=== PATIENT | female | born 1975 | race Caucasian/White ===

== ENCOUNTER 2023-10-06 07:30 | Observation (INO) ==
[2023-10-06] MEDS: NOZIN NASAL SANITIZER TP ONE (10:17)
[2023-10-06] MEDS: NS 1,000 ML IV 1,000 ML ONE ×2 (10:18→14:22)
[2023-10-06 11:31] VITALS: BMI 50.1
[2023-10-06] MEDS ORDERED: BENADRYL INJ 50 MG VIAL IVP PRN (12:54)
[2023-10-06] MEDS ORDERED: REGLAN INJ 10 MG VIAL IVP PRN (12:54)
[2023-10-06] MEDS ORDERED: ZOFRAN INJ 4 MG VIAL IVP PRN (12:54)
[2023-10-06] MEDS ORDERED: BARHEMSYS INJ IVP PRN (12:54)
[2023-10-06] MEDS: DILAUDID INJ ONE ×2 (12:57→15:58)
[2023-10-06] MEDS: DUONEB 0.5 MG/3 MG (3 mL) NEB ONE (13:40)
[2023-10-06] MEDS: OFIRMEV IV 1000 MG VIAL 1,000 MG/100 ML VIAL IV ONE (14:46)
[2023-10-06] MEDS: NS 100 ML IV 100 ML ONE (14:46)
[2023-10-06] MEDS ORDERED: SUPRANE ONE (14:46)
[2023-10-06] MEDS: PEPCID 20 MG VIAL ONE (14:46)
[2023-10-06] MEDS: ZOFRAN INJ 4 MG VIAL ONE ×2 (14:46→16:58)
[2023-10-06] MEDS: VERSED ONE (14:46)
[2023-10-06] MEDS ORDERED: KETAMINE HCL ONE (14:46)
[2023-10-06] MEDS: TORADOL 30 MG VIAL ONE (14:46)
[2023-10-06] MEDS: REGLAN INJ 10 MG VIAL ONE (14:46)
[2023-10-06] MEDS: DIPRIVAN VIAL 20 ML ONE (14:46)
[2023-10-06] MEDS: FENTANYL VIAL INJ 100 mcg ONE ×2 (14:46→15:24)
[2023-10-06] MEDS: ANCEF VIAL 1 GRAM ONE (14:46)
[2023-10-06] MEDS: ZEMURON 100 MG VIAL ONE (14:46)
[2023-10-06] MEDS: BETADINE SOLN ONE (14:46)
[2023-10-06] MEDS: BRIDION ONE (14:46)
[2023-10-06] MEDS: EPHEDRINE SULFATE INJ ONE (15:07)
[2023-10-06] MEDS: MARCAINE 0.25% INJ ONE (15:15)
[2023-10-06] MEDS: NEO-SYNEPHRINE INJ ONE (15:19)
[2023-10-06] MEDS ORDERED: TYLENOL 325 MG TAB PO PRN (17:03)
[2023-10-06] MEDS: DILAUDID INJ IVP PRN ×2 (17:13→20:33)
[2023-10-06] MEDS: NovoLIN R (or HumuLIN R) SUBCUT ONE (17:20)
[2023-10-06] MEDS: NovoLIN R (or HumuLIN R) ONE (18:28)
[2023-10-06] MEDS: NovoLIN R (or HumuLIN R) SUBCUT PRN (20:36)
[2023-10-06] MEDS: SNACK - Diabetic Appropriate PO SCH (20:48)
[2023-10-06] MEDS: COLACE CAP 100 MG PO SCH (20:48)
[2023-10-06] MEDS: NOZIN NASAL SANITIZER TP SCH (20:49)
[2023-10-06] MEDS: ANCEF VIAL 1 GRAM IVP SCH (21:25)
[2023-10-07 01:56] VITALS: RESP 18
[2023-10-07] MEDS: PERCOCET TAB 5/325 MG PO PRN (01:56)
[2023-10-07 05:27] LABS: BLOOD UREA NITROGEN 21 mg/dL (7-18); CALCIUM 8.2 mg/dL (8.5-10.1); CHLORIDE 102 mmol/L (98-107); COR NA(FOR HYPERGLY) 140 mmol/L (136-145); CREATININE 0.95 mg/dL (0.55-1.02); GLUCOSE 246 mg/dL (65-99); POTASSIUM 4.4 mmol/L (3.5-5.1); SODIUM 136 mmol/L (136-145); eGFR NON BLACK RACES > 60 (>60)
[2023-10-07 08:04] LABS: BASOPHILS # (AUTO) 0.3 X10^3/uL (0.0-0.1); BASOPHILS % (AUTO) 3.2 % (0.2-1.0); EOSINOPHILS # (AUTO) 0.5 x10^3/uL (0.0-0.2); EOSINOPHILS % (AUTO) 5.1 % (0.9-2.9); HEMATOCRIT 40.9 % (36.0-47.0); HEMOGLOBIN 13.3 g/dL (12.0-16.0); LYMPHOCYTES # (AUTO) 1.1 X10^3/uL (1.3-2.9); LYMPHOCYTES % (AUTO) 12.1 % (21.0-51.0); MEAN CORPUSCULAR HEMOGLOBIN 29.7 pg (27.0-34.0); MEAN CORPUSCULAR HGB CONC 32.6 g/dL (33.0-35.0); MEAN PLATELET VOLUME 8.3 fL (7.4-11.0); MONOCYTES # (AUTO) 0.7 x10^3/uL (0.3-0.8); NEUTROPHILS # (AUTO) 6.5 x10^3/uL (2.2-4.8); NEUTROPHILS % (AUTO) 71.6 % (42.0-75.0); PLATELET COUNT 221 X10^3/uL (150.0-450.0); RED BLOOD COUNT 4.49 X10^6/uL (3.5-5.4); RED CELL DISTRIBUTION WIDTH 14.8 % (11.6-16.5); WHITE BLOOD COUNT 9.1 X10^3/uL (3.6-10.0)
--- NOTE | 2023-10-07 08:16 | NOTE.SOAP ---
Soap Note Note for Day of Date of Exam: 10/07/23 Subjective Data Subjective Data: Patient is POD1 s/p Hindfoot fusion with removal of external fixator. She is doing well but in pain which is normal in the post op course. No constitutional symptoms. Objective Data Objective Data: Incisions are well coapted, minimal edema and erythema with the post op course. No Drainage. There was sanguinous drainage upon removal of dressings but no active bleeding. Neurovascular status intact Assessment Assessment: s/p Hinfoot fusion with removal of external fixator - Club foot, right lower extremity Plan Plan: Patient was seen bedside this am; diagnosis and treatment were discussed i n detail. Dressing change performed with xeroform DSD and a posterior splint. SHe is to be nonweight bearing to the RLE with assistive device. She states she is ready to go home; ok from our standpoint but PT eval prior is preferrable. Discharge with post op instructiions, pain meds, DVT ppx, zofran and keflex (sent to pharmacy. Patient is to follow up with Dr. Hernandez at appointment time or sooner if any problems arise
[2023-10-07] MEDS: LOVENOX INJ 40 MG SYR SC SCH (08:23)
[2023-10-07 09:20] VITALS: BP 121/72; PULSE 99; TEMP 98.5; O2SAT 92
[2023-10-07] MEDS: ZOFRAN INJ 4 MG VIAL IVP PRN (09:34)
[2023-10-07] MEDS ORDERED: SNACK - Diabetic Appropriate PO SCH (20:00)
== END 2023-10-07 11:05 | disposition home or self-care (01) ==
LOC: MED/SURG
PROVIDERS: ADMIT Obstetrics & Gynecology Obstetrics; ATTEND Obstetrics & Gynecology Obstetrics

== ENCOUNTER 2024-12-06 09:45 | Observation (INO) ==
[2024-12-06] MEDS ORDERED: KETAMINE HCL ONE (11:31)
[2024-12-06] MEDS ORDERED: XYLOCAINE 2 % (PLAIN) ONE (11:31)
[2024-12-06] MEDS ORDERED: ULTANE GAS IN ONE (11:31)
[2024-12-06] MEDS: BETADINE SOLN ONE (12:00)
[2024-12-06] MEDS: OFIRMEV IV 1000 MG VIAL 1,000 MG/100 ML VIAL IV ONE (12:07)
[2024-12-06] MEDS: BRIDION ONE (12:07)
[2024-12-06] MEDS: DIPRIVAN VIAL 20 ML ONE (12:07)
[2024-12-06] MEDS: TORADOL 30 MG VIAL ONE (12:09)
[2024-12-06] MEDS: REGLAN INJ 10 MG VIAL ONE (12:09)
[2024-12-06] MEDS: XYLOCAINE 2 % (PLAIN) ONE (12:09)
[2024-12-06] MEDS: ZOFRAN INJ 4 MG VIAL ONE ×2 (12:09→16:09)
[2024-12-06] MEDS: PRECEDEX INJ VIAL ONE (12:09)
[2024-12-06] MEDS: ZEMURON 100 MG VIAL ONE (12:09)
[2024-12-06] MEDS: VERSED ONE (12:12)
[2024-12-06] MEDS: FENTANYL VIAL INJ 100 mcg ONE (12:15)
[2024-12-06] MEDS: NS 1,000 ML IV 1,000 ML ONE ×2 (12:18→19:30)
[2024-12-06] MEDS: NovoLIN R (or HumuLIN R) SUBCUT PRN (12:21)
[2024-12-06] MEDS: PEPCID 20 MG VIAL ONE (12:22)
[2024-12-06 12:23] VITALS: BMI 50.1
[2024-12-06] MEDS: NovoLIN R (or HumuLIN R) ONE (12:24)
[2024-12-06] MEDS: NS 1,000 ML IV 1,200 ML IV PRN (13:30)
[2024-12-06] MEDS: ZOFRAN INJ 4 MG VIAL IVP PRN ×2 (13:32→16:11)
[2024-12-06] MEDS: REGLAN INJ 10 MG VIAL IVP PRN (13:32)
[2024-12-06] MEDS: PEPCID 20 MG VIAL IVP PRN (13:32)
[2024-12-06] MEDS ORDERED: XYLOCAINE 2 % (PLAIN) PRN (13:40)
[2024-12-06] MEDS: DIPRIVAN VIAL 200 ML IVP PRN (13:40)
[2024-12-06] MEDS: KETAMINE HCL IV PRN (13:40)
[2024-12-06] MEDS: FENTANYL VIAL INJ 100 mcg IVP PRN (13:40)
[2024-12-06] MEDS: EPHEDRINE SULFATE INJ IVP PRN (13:50)
[2024-12-06] MEDS: NEO-SYNEPHRINE INJ ONE (13:59)
[2024-12-06] MEDS: EPHEDRINE SULFATE INJ ONE (13:59)
[2024-12-06] MEDS: MARCAINE 0.25% INJ ONE (14:02)
[2024-12-06] MEDS: ROBINUL ONE (14:10)
[2024-12-06] MEDS: ROBINUL IVP PRN (14:11)
[2024-12-06] MEDS: ANCEF VIAL 1 GRAM IV PRN (14:15)
[2024-12-06] MEDS: ANCEF VIAL 1 GRAM ONE (14:15)
[2024-12-06] MEDS ORDERED: BENADRYL INJ 50 MG VIAL IVP PRN (14:16)
[2024-12-06] MEDS ORDERED: BARHEMSYS INJ IVP PRN (14:16)
[2024-12-06] MEDS ORDERED: DILAUDID INJ IVP PRN ×2 (14:16→15:54)
[2024-12-06] MEDS: OFIRMEV IV 1000 MG VIAL 1,000 MG/100 ML VIAL IV PRN (14:33)
[2024-12-06] MEDS: DILAUDID INJ ONE (14:35)
[2024-12-06] MEDS: VANCOMYCIN HCL ONE (14:42)
[2024-12-06] MEDS: TORADOL 30 MG VIAL IVP PRN (14:43)
[2024-12-06] MEDS: TOBRAMYCIN SULFATE ONE (14:43)
[2024-12-06] MEDS: ZEMURON 100 MG VIAL IVP PRN (14:49)
[2024-12-06] MEDS: PRECEDEX INJ VIAL IVP PRN (15:21)
[2024-12-06] MEDS: HYDROGEN PEROXIDE 3% ONE (15:25)
[2024-12-06] MEDS: NEO-SYNEPHRINE INJ IVP PRN (15:26)
[2024-12-06] MEDS: BRIDION IVP PRN (15:29)
[2024-12-06] MEDS: DILAUDID INJ IVP PRN (15:39)
[2024-12-06] MEDS ORDERED: TYLENOL 325 MG TAB PO PRN (15:51)
[2024-12-06] MEDS ORDERED: ZOFRAN INJ 4 MG VIAL IVP PRN (15:51)
[2024-12-06] MEDS: BARHEMSYS INJ ONE (15:57)
[2024-12-06] MEDS: PHENERGAN INJ 25 MG IM ONE (16:34)
[2024-12-06] MEDS: PERCOCET TAB 5/325 MG PO PRN (22:08)
[2024-12-06] MEDS: COLACE CAP 100 MG PO SCH (22:09)
[2024-12-06] MEDS: NS 250 ML IV 250 ML IV ONE (22:11)
[2024-12-06] MEDS: ANCEF VIAL 1 GRAM 2 G in NS 100 ML IV 100 ML IV SCH (22:11)
[2024-12-06] MEDS: SNACK - Diabetic Appropriate PO SCH (22:20)
[2024-12-07 04:34] VITALS: O2SAT 95
[2024-12-07 06:02] LABS: COR NA(FOR HYPERGLY) 142 mmol/L (136-145); CREATININE 0.96 mg/dL (0.55-1.02); eGFR NON BLACK RACES > 60 (>60)
--- NOTE | 2024-12-07 08:04 | NOTE.SOAP ---
Soap Note Note for Day of Date of Exam: 12/07/24 Subjective Data Subjective Data: Patient is seen resting comfortably in bed and eating. She denies any calf pain, no shortness of breath and no fevers. Patient states she did have some pain to the anterior tibia consistent with her surgical hardware removal site. The pain medication did help her. Objective Data Objective Data: Dressing to the LLE is clean dry and intact. Foot is currently in a splint and in rectus position, with digits exposed. All digits maintain a CFT of < 3sec with ROM intact. No calf tenderness noted above the level of the splint. 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 Hernandez, and is to keep her dressing clean, dry and intact at this time
[2024-12-07] MEDS: LOVENOX INJ 40 MG SYR SC SCH (08:57)
[2024-12-07] MEDS: COMPAZINE INJ IVP ONE (10:23)
[2024-12-07 11:33] VITALS: RESP 18
[2024-12-07 14:05] VITALS: BP 140/82; PULSE 95; TEMP 97.8
== END 2024-12-07 12:50 | disposition home or self-care (01) ==
LOC: OBS → MED/SURG 16:15
PROVIDERS: ADMIT Obstetrics & Gynecology Obstetrics; ATTEND Obstetrics & Gynecology Obstetrics
PROC: HARDREM (ICD-10-PCS; 2024-12-06 12:55)
DX: E11.65 Type 2 diabetes mellitus with hyperglycemia; M96.0 Pseudarthrosis after fusion or arthrodesis; M21.172 Varus deformity, not elsewhere classified, left ankle; Z79.4 Long term (current) use of insulin; E11.42 Type 2 diabetes mellitus with diabetic polyneuropathy; T84.84XA Pain due to internal orthopedic prosthetic devices, implants and grafts, initial encounter; Z16.11 Resistance to penicillins; Z16.29 Resistance to other single specified antibiotic; B95.7 Other staphylococcus as the cause of diseases classified elsewhere; Z16.19 Resistance to other specified beta lactam antibiotics; Z16.12 Extended spectrum beta lactamase (ESBL) resistance

== ENCOUNTER 2025-01-24 11:22 | Observation (INO) ==
[~2025-01-24 11:22] MED LIST: KETAMINE HCL ONE; ULTANE GAS IN ONE; XYLOCAINE 2 % (PLAIN) ONE
[2025-01-24] MEDS: ANCEF VIAL 1 GRAM ONE (11:26)
[2025-01-24 12:03] VITALS: BMI 50.1
[2025-01-24 12:11] VITALS: RESP 18
[2025-01-24] MEDS ORDERED: BENADRYL INJ 50 MG VIAL IVP PRN (12:20)
[2025-01-24] MEDS ORDERED: BARHEMSYS INJ IVP PRN (12:20)
[2025-01-24] MEDS ORDERED: DILAUDID INJ IVP PRN (12:20)
[2025-01-24] MEDS ORDERED: ZOFRAN INJ 4 MG VIAL IVP PRN (12:20)
[2025-01-24] MEDS: FENTANYL VIAL INJ 100 mcg ONE (12:27)
[2025-01-24] MEDS: VERSED ONE (12:27)
[2025-01-24] MEDS: ZEMURON 100 MG VIAL ONE (12:29)
[2025-01-24] MEDS: BRIDION ONE (12:29)
[2025-01-24] MEDS: DIPRIVAN VIAL 20 ML ONE (12:29)
[2025-01-24] MEDS: D5 1/2 NS 1,000 ML 1,000 ML IV ONE (12:29)
[2025-01-24] MEDS: OFIRMEV IV 1000 MG VIAL 1,000 MG/100 ML VIAL IV ONE (12:29)
[2025-01-24] MEDS: DUONEB 0.5 MG/3 MG (3 mL) NEB ONE (12:30)
[2025-01-24] MEDS: NS 100 ML IV 100 ML ONE (12:30)
[2025-01-24] MEDS: DECADRON INJ ONE (12:31)
[2025-01-24] MEDS: REGLAN INJ 10 MG VIAL ONE (12:31)
[2025-01-24] MEDS: ZOFRAN INJ 4 MG VIAL ONE (12:31)
[2025-01-24] MEDS: PEPCID 20 MG VIAL ONE ×2 (13:07→13:16)
[2025-01-24] MEDS: D5 1/2 NS 1,000 ML 1,000 ML IV PRN (13:12)
[2025-01-24] MEDS: VERSED IVP PRN (13:21)
[2025-01-24] MEDS: ZOFRAN INJ 4 MG VIAL IVP PRN ×2 (13:22→17:48)
[2025-01-24] MEDS: PEPCID 20 MG VIAL IVP PRN (13:23)
[2025-01-24] MEDS: REGLAN INJ 10 MG VIAL IVP PRN (13:26)
[2025-01-24] MEDS: ANCEF VIAL 1 GRAM IV PRN (13:32)
[2025-01-24] MEDS: XYLOCAINE 2 % (PLAIN) INJ PRN (13:39)
[2025-01-24] MEDS: FENTANYL VIAL INJ 100 mcg IVP PRN (13:39)
[2025-01-24] MEDS: KETAMINE HCL IVP PRN (13:40)
[2025-01-24] MEDS: ZEMURON 100 MG VIAL IVP PRN (13:41)
[2025-01-24] MEDS: DIPRIVAN VIAL 200 ML IVP PRN (13:47)
[2025-01-24] MEDS: DECADRON INJ IVP PRN (13:48)
[2025-01-24] MEDS: ROBINUL ONE (13:48)
[2025-01-24] MEDS: NEO-SYNEPHRINE INJ ONE (13:52)
[2025-01-24] MEDS: MARCAINE 0.5% ONE (13:56)
[2025-01-24] MEDS: EPHEDRINE SULFATE INJ IVP PRN (14:12)
[2025-01-24] MEDS: EPHEDRINE SULFATE INJ ONE (14:12)
[2025-01-24] MEDS: OFIRMEV IV 1000 MG VIAL 1,000 MG/100 ML VIAL IV PRN (14:15)
[2025-01-24] MEDS: ROBINUL IVP PRN (14:21)
[2025-01-24] MEDS: DILAUDID INJ ONE (15:04)
[2025-01-24] MEDS: PRECEDEX INJ VIAL IVP PRN (15:11)
[2025-01-24] MEDS: NEO-SYNEPHRINE INJ IVP PRN (15:24)
[2025-01-24] MEDS: NS 1,000 ML IV 300 ML IV PRN (16:15)
[2025-01-24] MEDS: DILAUDID INJ IVP PRN ×2 (16:30→17:48)
[2025-01-24] MEDS: BRIDION IVP PRN (16:37)
[2025-01-24] MEDS ORDERED: TYLENOL 325 MG TAB PO PRN (16:51)
[2025-01-24] MEDS: COLACE CAP 100 MG PO SCH (20:31)
[2025-01-24] MEDS: NovoLIN R (or HumuLIN R) SUBCUT PRN (20:33)
[2025-01-24] MEDS: PERCOCET TAB 5/325 MG PO PRN (21:55)
[2025-01-24] MEDS: NS 1,000 ML IV 1,000 ML ONE ×2 (23:00→23:01)
[2025-01-24] MEDS: NS 1,000 ML IV 1,000 ML IV SCH (23:01)
[2025-01-25 05:54] LABS: COR NA(FOR HYPERGLY) 140.0 mmol/L (136-145); CREATININE 1.33 mg/dL (0.55-1.02); eGFR NON BLACK RACES 45.0 (>60)
[2025-01-25] MEDS: LOVENOX INJ 40 MG SYR SC SCH (08:55)
--- NOTE | 2025-01-25 09:41 | MD.NOTE ---
Provider Note Note Note: Patient was seen and examined at bedside. Patient is POD # 1 abx john removal and ex fix application to the LLE. Patient is denying any pain and has no strikethrough noted to her bandage. She states she had no acute events overnight and denies any fevers or shortness of breath. Ex fix to LLE is in rec tus position and patient can feel my fingertips on the distal aspects of her digits and she does adequate ROM to her left digits. Patient denies any pain to the pin sites or osteotomy sites at this time. Patient can be discharged home as she is requesting to go home Patient is remain NWB to the LLE except for transfers Patient has pain medication and zofran in her chart, as well as Lovenox to be started today There is a wrench in patients chart with extra foam squares for her external fixator that patient needs to take home with her, Patient is to leave dressing intact until follow up with our office Please contact me with any questions!
[2025-01-25] MEDS ORDERED: ZOFRAN INJ 4 MG VIAL ONE (10:26)
[2025-01-25 10:29] VITALS: BP 163/86; PULSE 92; TEMP 97.7; O2SAT 96
[2025-01-25] MEDS: ZOFRAN INJ 4 MG VIAL IVP PRN (10:30)
[2025-01-25] MEDS ORDERED: SNACK - Diabetic Appropriate PO SCH (20:00)
== END 2025-01-25 12:15 | disposition home or self-care (01) ==
LOC: SURG1 11:22 → MED/SURG 11:22
PROVIDERS: ADMIT Obstetrics & Gynecology Obstetrics; ATTEND Obstetrics & Gynecology Obstetrics
PROC: APEXFIX (2025-01-24 08:40)
DX: E11.42 Type 2 diabetes mellitus with diabetic polyneuropathy; E87.1 Hypo-osmolality and hyponatremia; M86.372 Chronic multifocal osteomyelitis, left ankle and foot; Z72.0 Tobacco use; R94.4 Abnormal results of kidney function studies; M21.172 Varus deformity, not elsewhere classified, left ankle; G89.18 Other acute postprocedural pain; E11.65 Type 2 diabetes mellitus with hyperglycemia; Z59.868 Other specified financial insecurity; Z79.4 Long term (current) use of insulin; M24.572 Contracture, left ankle